=== PATIENT | male | born 1975 | race Caucasian/White ===

== ENCOUNTER 2020-02-04 12:30 | Emergency (ER) | payer BC ==
[2020-02-04 12:38] VITALS: BP 121/83
[2020-02-04] MEDS ORDERED: PROPARACAINE 0.5% OPHTH DROPS 15 ML EACHEYE STA (12:54)
--- NOTE | 2020-02-04 13:20 | ED Physician Documentation ---
PD HPI OPHTHO - Stated complaint Stated Complaint: EYE INJ - Chief complaint Chief Complaint: Heent - History obtained from History obtained from: Patient - History of Present Illness Timing - onset: How many hours ago (1) Timing - duration: Hours (1) Timing - details: Abrupt onset Location: Right Quality / character: Aching Associated symptoms: Redness, Tearing, FB sensation Recently seen: Not recently seen - Additional information Additional information: hit in the right eye by a sticker ansari today. pain with opening the eye, better with eye closed. Td UTD. No contacts or glasses Review of Systems Constitutional: denies: Fever, Chills GI: denies: Vomiting Musculoskeletal: denies: Neck pain, Back pain Neurologic: denies: Headache PD PAST MEDICAL HISTORY - Past Medical History Past Medical History: No - Past Surgical History Past Surgical History: No - Present Medications Home Medications: Ambulatory Orders Medication Instructions Recorded Confirmed Polymyxin B/Trimeth Ophth Drop 1 drops RIGHTEYE Q3H 7 Days #1 02/04/20 [Polytrim Ophth Drops] bottle - Allergies Allergies/Adverse Reactions: Allergies Allergy/AdvReac Type Severity Reaction Status Date / Time Penicillins Allergy Unknown Verified 02/04/20 12:34 - Social History Does the pt smoke?: No Smoking Status: Never smoker Does the pt drink ETOH?: No Does the pt have substance abuse?: No - Immunizations Immunizations are current?: Yes - POLST Patient has POLST: No PD ED PE NORMAL - Vitals Vital signs reviewed: Yes - General General: Alert and oriented X 3, No acute distress - HEENT HEENT: Moist mucous membranes, Other (r eye - Conjunctival injection and irritation. Clear drainage. Fluorescein uptake in the inferior lateral aspect of the cornea. There was a small piece of debris under the upper eyelid when it was everted. This was removed. Eye was flushed with saline.) - Derm Derm: Warm and dry - Neuro Neuro: Alert and oriented X 3 Results - Vitals Vitals: Vital Signs - 24 hr 02/04/20 12:34 Temperature 36.7 C Heart Rate 83 Respiratory 16 Rate Blood Pressure 121/83 H O2 Saturation 98 Oxygen O2 Source Room air PD MEDICAL DECISION MAKING - ED course Complexity details: considered differential, d/w patient ED course: 44-year-old male with a right eye foreign body and corneal abrasion. Foreign body was removed. Will place on Polytrim ophthalmic for the abrasion. Tetanus up-to-date. Patient counseled regarding signs and symptoms for which I believe and urgent re-evaluation would be necessary. Patient with good understanding of and agreement to plan and is comfortable going home at this time This document was made in part using voice recognition software. While efforts are made to proofread this document, sound alike and grammatical errors may occur. Negative Carmelo sign. No evidence of globe rupture Departure - Departure Disposition: 01 Home, Self Care Clinical Impression: Foreign body in eye Qualifiers: Encounter type: initial encounter Laterality: right Qualified Code(s): T15.91XA - Foreign body on external eye, part unspecified, right eye, initial encounter Corneal abrasion, right Qualifiers: Encounter type: initial encounter Qualified Code(s): S05.01XA - Injury of conjunctiva and corneal abrasion without foreign body, right eye, initial encounter Condition: Good Instructions: ED Eye Injury Corneal Abrasion Follow-Up: Yeison Engle MD [Primary Care Provider] - Within 1 week Prescriptions: Polymyxin B/Trimeth Ophth Drop [Polytrim Ophth Drops] 1 drops RIGHTEYE Q3H 7 Days #1 bottle Comments: Use the eyedrops as prescribed. Return if you worsen. You can use Motrin or Tylenol as needed for pain. Cooling the eyedrops will help as well. Sometimes using a gel eyedrop will make it feel better as well. These can be refrigerated.
== END 2020-02-04 13:22 | disposition home or self-care (01) ==
LOC: ED 12:30
DX: T15.11XA Foreign body in conjunctival sac, right eye, initial encounter (principal); S05.01XA Injury of conjunctiva and corneal abrasion without foreign body, right eye, initial encounter; X58.XXXA Exposure to other specified factors, initial encounter; Y93.H2 Activity, gardening and landscaping; Y92.007 Garden or yard of unspecified non-institutional (private) residence as the place of occurrence of the external cause
CPT/HCPCS: 65205; 99282; J3490